=== PATIENT | male | born 1965 | race Caucasian/White ===

== ENCOUNTER 2016-06-20 15:50 | Emergency (ER) | payer SELFPAY ==
[~2016-06-20] VITALS: Ht 160 cm; Wt 66.0 kg
[~2016-06-20 15:50] MED LIST: NEXI20CA PO
[2016-06-20 15:52] VITALS: BP 116/71; PULSE 102; RESP 16; TEMP 98.7; O2SAT 99
--- NOTE | 2016-06-20 16:02 | PD ---
Physical Exam Date Seen by Provider: Jun 20, 2016 Time Seen by Provider: 15:59 Narrative 51 yowm c/o lbp for 3 days ago. no injury. no h/o back pain. no bowel or bladder changes vs noted awaiting bed placement. Data Data Last Documented VS Vital Signs Date Time Temp Pulse Resp B/P Pulse Ox O2 Delivery O2 Flow Rate FiO2 06/20/16 15:52 98.7 102 16 116/71 99 MDM Medical Record Reviewed: Yes Supervised Visit with RORY: Yes Mauricio oLu Jun 20, 2016 16:01
[2016-06-20] MEDS: ONDANSETRON HCL 4 MG/2 ML VIAL IVP ONE (17:15)
[2016-06-20] MEDS: HYDROmorphone HCL PF 2 MG/ML VIAL IM ONE (17:15)
--- NOTE | 2016-06-20 17:26 | PD ---
HPI . Abdominal, back and testicular pain Chief Complaint: Back/ Neck Pain or Injury Time Seen by Provider: 16:59 Travel History International Travel<30 days: No Contact w/Intl Traveler<30days: No Traveled to known affect area: No History of Present Illness HPI Patient presents with about a 3 to four-day history of low back pain, low abdominal pain. Her pain. Pain is exacerbated by any type of movement. Pain is unrelieved by any analgesic patch. Denies any GERD. He denies any nausea, vomiting or diarrhea. He denies any urinary tract symptoms such as dysuria, frequency or urgency. He denies any penile discharge. He denies any testicular swelling. He states that his pain is a 10 out of 10. PFSH Past Medical History Depression: Yes Cancer: No Cardiovascular Problems: No Diabetes: No Genitourinary: No Musculoskeletal: No Neurologic: No Psychiatric: No Reproductive: No Respiratory: No Thyroid Disease: Yes Ulcer: Yes Past Surgical History AICD: No Arteriovenous Shunt: No Insulin Pump: No Joint Replacement: No Pacemaker: No Social History Alcohol Use: No Tobacco Use: Yes (/ PPD) Substance Use: No (DENIES) Allergies-Medications (Allergen,Severity, Reaction): Coded Allergies: No Known Allergies (Verified , 06/20/16) Reported Meds & Prescriptions Reported Meds & Active Scripts Active Reported Nexium (Esomeprazole Magnesium) Esomeprazole Magnesium 20 mg Cap 20 Mg PO DAILY Review of Systems Except as stated in HPI: all other systems reviewed are Neg General / Constitutional: No: Fever, Chills Cardiovascular: No: Chest Pain or Discomfort Respiratory: No: Shortness of Breath Gastrointestinal: Positive: Abdominal Pain, No: Nausea, Vomiting, Diarrhea Genitourinary: Positive: Other (testicular pain), No: Urgency, Frequency, Dysuria, Discharge Physical Exam Narrative GENERAL: Healthy-appearing gentleman in no acute distress. SKIN: Warm and dry. HEAD: Atraumatic. Normocephalic. EYES: Pupils equal and round. ENT: No nasal bleeding or discharge. Mucous membranes pink and moist. NECK: Trachea midline. Neck is supple. CARDIOVASCULAR: Regular rate and rhythm. Heart sounds normal. RESPIRATORY: No accessory muscle use. Lungs are clear with full air movement throughout. GASTROINTESTINAL: Abdomen soft. Suprapubic tenderness. No pulsatile abdominal mass. Nondistended. Bowel sounds present. No CVA tenderness. : Normal circumcised male. No penile discharge. No obvious testicular swelling. He does have right testicular tenderness. No inguinal hernia palpated. MUSCULOSKELETAL: No obvious deformities. No edema. NEUROLOGICAL: Awake and alert. No obvious cranial nerve deficits. Motor grossly within normal limits. Normal speech. PSYCHIATRIC: Appropriate mood and affect; insight and judgment normal. Data Data Last Documented VS Vital Signs Date Time Temp Pulse Resp B/P Pulse Ox O2 Delivery O2 Flow Rate FiO2 06/20/16 15:52 98.7 102 16 116/71 99 Orders Complete Blood Count With Diff (06/20/16 17:08) Comprehensive Metabolic Panel (06/20/16 17:08) Ua Includes Microscopic (06/20/16 17:08) Gc And Chlamydia Pcr (06/20/16 17:08) Ct Abd/Pel W/O Iv Contrast (06/20/16 17:08) Us Testicles W Doppler (06/20/16 17:08) Iv Access Insert/Monitor (06/20/16 17:08) Ondansetron Inj (Zofran Inj) (06/20/16 17:15) Sodium Chloride 0.9% Flush (Ns Flush) (06/20/16 17:15) Hydromorphone Pf Inj (Dilaudid Pf Inj) (06/20/16 17:15) Labs Laboratory Tests Test 06/20/16 17:30 White Blood Count 6.3 TH/MM3 Red Blood Count 5.35 MIL/MM3 Hemoglobin 17.0 GM/DL Hematocrit 49.0 % Mean Corpuscular Volume 91.7 FL Mean Corpuscular Hemoglobin 31.7 PG Mean Corpuscular Hemoglobin 34.6 % Concent Red Cell Distribution Width 13.8 % Platelet Count 247 TH/MM3 Mean Platelet Volume 8.4 FL Neutrophils (%) (Auto) 65.2 % Lymphocytes (%) (Auto) 25.2 % Monocytes (%) (Auto) 7.8 % Eosinophils (%) (Auto) 1.1 % Basophils (%) (Auto) 0.7 % Neutrophils # (Auto) 4.1 TH/MM3 Lymphocytes # (Auto) 1.6 TH/MM3 Monocytes # (Auto) 0.5 TH/MM3 Eosinophils # (Auto) 0.1 TH/MM3 Basophils # (Auto) 0.0 TH/MM3 CBC Comment DIFF FINAL Differential Comment Urine Color YELLOW Urine Turbidity CLEAR Urine pH 6.0 Urine Specific Flora 1.031 Urine Protein TRACE mg/dL Urine Glucose (UA) NEG mg/dL Urine Ketones NEG mg/dL Urine Occult Blood NEG Urine Nitrite NEG Urine Bilirubin NEG Urine Urobilinogen 2.0 MG/DL Urine Leukocyte Esterase TRACE Urine RBC 6 /hpf Urine WBC 4 /hpf Urine Squamous Epithelial <1 /hpf Cells Urine Mucus FEW /lpf Microscopic Urinalysis Comment Sodium Level 139 MEQ/L Potassium Level 4.2 MEQ/L Chloride Level 102 MEQ/L Carbon Dioxide Level 30.9 MEQ/L Anion Gap 6 MEQ/L Blood Urea Nitrogen 15 MG/DL Creatinine 1.05 MG/DL Estimat Glomerular Filtration 74 ML/MIN Rate Random Glucose 72 MG/DL Calcium Level 8.6 MG/DL Total Bilirubin 0.3 MG/DL Aspartate Amino Transf 16 U/L (AST/SGOT) Alanine Aminotransferase 17 U/L (ALT/SGPT) Alkaline Phosphatase 67 U/L Total Protein 7.4 GM/DL Albumin 4.1 GM/DL [facility] Medical Decision Making Medical Screen Exam Complete: Yes Emergency Medical Condition: Yes Differential Diagnosis Differential diagnosis of abdominal pain includes but is not limited to gastritis, pancreatitis, hepatitis, gastroenteritis, gallbladder disease, constipation, urinary retention, UTI, peptic ulcer disease, diverticulitis or appendicitis Narrative Course Patient presents with lower abdominal, low back and testicular pain. I have ordered a renal stone CT and a testicular ultrasound. I have ordered basic labs. I have also ordered a urine and a GC/chlamydial DNA probe. He will be given IV analgesics. CBC & BMP Diagram 06/20/16 17:30 Liver function studies are normal. UA shows trace leukocyte esterase, 6 red cells. Last Impressions Scrotum Ultrasound 06/20/161707 Signed Impressions: Service Date/Time: Monday, June 20, 2016 18:25 - CONCLUSION: 1. Testicle is unremarkable sonographically with positive flow. Mildly enlarged left epididymis. Small epididymal cysts bilaterally. Small hydroceles. Mauricio Noble MD Abdomen/Pelvis CT 06/20/161 Signed Impressions: Service Date/Time: Monday, June 20, 2016 17:39 - CONCLUSION: 1. No acute findings. Mild constipation. Specifically no renal calculi or obstructive uropathy. Mauricio Noble MD I will treat the patient for possible UTI. I will also recommend milk of magnesia. Diagnosis Primary Impression: Abdominal pain Qualified Code: R10.30 - Lower abdominal pain Additional Impressions: Low back pain Qualified Code: M54.5 - Acute bilateral low back pain without sciatica Testicular pain, right Constipation Qualified Code: K59.00 - Constipation, unspecified constipation type Urinary tract infection Qualified Code: N34.2 - Infective urethritis Patient Instructions: General Instructions, Nonspecific Urethritis in Men (DC) Additional Instructions: Milk of magnesia nightly until stools are soft Med/Other Pt SpecificInfo: Prescription(s) given Scripts Tramadol (Ultram)50 Mg Tab50 Mg PO Q4H PRN (PAIN) #12 TAB Ref 0 Prov:Rosa Britton MD 06/20/16 Ibuprofen 800 Mg [id number] Mg PO Q8H PRN (pain) #30 TAB Ref 0 Prov:Rosa Britton MD 06/20/16 Doxycycline Hyclate 100 Mg [id number] Mg PO BID #20 CAP Ref 0 Prov:Rosa Britton MD 06/20/16 Disposition: 01 DISCHARGE HOME Condition: Stable Rosa Britton MD Jun 20, 2016 17:26
[2016-06-20 18:03] LABS: AUTOMATED NEUTROPHIL # 4.1 TH/MM3 (1.8-7.7); BASOPHIL % 0.7 % (0.0-2.0); EOSINOPHIL # 0.1 TH/MM3 (0-0.4); EOSINOPHIL % 1.1 % (0.0-4.0); HEMO FLAGS DIFF FINAL; LYMPH % 25.2 % (9.0-44.0); LYMPHOCYTE # 1.6 TH/MM3 (1.0-4.8); MEAN CELL VOLUME 91.7 FL (80.0-100.0); MEAN CORPUSCULAR HEMOGLOBIN 31.7 PG (27.0-34.0); MEAN CORPUSCULAR HGB CONC 34.6 % (32.0-36.0); MONO % 7.8 % (0.0-8.0); NEUT % 65.2 % (16.0-70.0); PLATELET COUNT 247 TH/MM3 (150-450); RED BLOOD COUNT 5.35 MIL/MM3 (4.50-5.90); RED CELL DISTRIBUTION WIDTH 13.8 % (11.6-17.2); WHITE BLOOD COUNT 6.3 TH/MM3 (4.0-11.0)
[2016-06-20 18:24] LABS: BLOOD, URINE NEG (NEG); GLUCOSE,URINE NEG (NEG); KETONE, URINE NEG (NEG); MUCUS URINE FEW /lpf (OCC); NITRITE,URINE NEG (NEG); SQUAMOUS EPITHELIAL CELL URINE <1 /hpf (0-5); URINE COLOR YELLOW (YELLW/STRAW)
[2016-06-20 18:25] LABS: ANION GAP 6 MEQ/L (5-15); AST (GOT) 16 U/L (15-37); BICARBONATE 30.9 MEQ/L (21.0-32.0); BLOOD UREA NITROGEN 15 MG/DL (7-18); CHLORIDE 102 MEQ/L (98-107); GLOMERULAR FILTRATION RATE 74 ML/MIN (>89); POTASSIUM 4.2 MEQ/L (3.5-5.1); SODIUM (NA) 139 MEQ/L (136-145)
--- NOTE | 2016-06-20 18:27 | RADRPT ---
EXAM DATE/TIME: 06/20/2016 17:39 [facility] COMPARISON: No previous studies available for comparison. INDICATIONS : Evaluate for calculi. ORAL CONTRAST: No oral contrast ingested. RADIATION DOSE: 9.96 CTDIvol (mGy) MEDICAL HISTORY : Hypertension. SURGICAL HISTORY : None. ENCOUNTER: Initial ACUITY: 3 days PAIN SCALE: 4/10 LOCATION: Bilateral flank TECHNIQUE: Volumetric scanning of the abdomen and pelvis was performed. Using automated exposure control and ad justment of the mA and/or kV according to patient size, radiation dose was kept as low as reasonably achievable to obtain optimal diagnostic quality images. FINDINGS: Lung bases are clear. No acute findings in the liver, spleen, adrenals, kidneys or pancreas. Specific ally no renal calculi or evidence for obstructive uropathy. No calcified gallstones or biliary ductal dilatation. Mild constipation. Appendix is normal. CONCLUSION: 1. No acute findings. Mild constipation. Specifically no renal calculi or obstructive uropathy. Mauricio Noble MD on June 20, 2016 at 18:21 Board Certified Radiologist. This report was verified electronically.
[2016-06-20 18:29] LABS: ALKALINE PHOSPHATASE 67 U/L (45-117); ALT (GPT) 17 U/L (12-78); TOTAL BILIRUBIN ADULT 0.3 MG/DL (0.2-1.0)
--- NOTE | 2016-06-20 19:52 | RADRPT ---
EXAM DATE/TIME: 06/20/2016 18:25 [facility] COMPARISON: No previous studies available for comparison. INDICATIONS : Scrotal pain. MEDICAL HISTORY : Hypertension. Hyperthyroidism. Ulcer. Depression. SURGICAL HISTORY : Left arm surgery from trauma. ENCOUNTER: Initial ACUITY: 3 days PAIN SCORE: 1/10 LOCATION: Bilateral scrotum. MEASUREMENTS: RIGHT TESTICLE: 4.0 x 2.9 x 2.1cm LEFT TESTICLE: 3.6 x 2.4 x 2.0 cm FINDINGS: Testicles within normal size without testicular mass. Positive testicular blood flow. 3 mm right epid idymal cyst. 2 mm left epididymal cyst. Epididymis mildly enlarged. Mild hydroceles. CONCLUSION: 1. Testicle is unremarkable sonographically with positive flow. Mildly enlarged left epididymis. Smal l epididymal cysts bilaterally. Small hydroceles. Mauricio Noble MD on June 20, 2016 at 19:47 Board Certified Radiologist. This report was verified electronically.
[2016-06-20] MEDS ORDERED: DOXY100C PO (20:10)
[2016-06-20] MEDS ORDERED: IBUP800T23 PO (20:10)
[2016-06-20] MEDS ORDERED: ULTR50TA5 PO (20:10)
[2016-06-20 20:40] VITALS: BP 140/82; PULSE 84; RESP 14; O2SAT 96
[2016-06-20] MEDS: DOXYCYCLINE HYCLATE 100 MG CAP PO ONE (20:59)
[2016-06-20] MEDS: SODIUM CHLORIDE 0.9% FLUSH 10 ML FLUSH IVF PRN (20:59)
[2016-06-21 00:31] LABS: CHLAMYDIA PCR NOT DETECTED (NOT DETECT); NEISSERIA PCR NOT DETECTED (NOT DETECT)
== END 2016-06-20 21:04 | disposition home or self-care (01) ==
LOC: NEPD 15:50
DX: R10.30 Lower abdominal pain, unspecified (principal); M54.5 Low back pain; K59.00 Constipation, unspecified; N34.2 Other urethritis; N43.3 Hydrocele, unspecified; N50.89 Other specified disorders of the male genital organs; F17.210 Nicotine dependence, cigarettes, uncomplicated
CPT/HCPCS: 74176; 76870; 80053; 81001; 85025; 87491; 87591; 93975; 96372; 96374; 99284; J1170; J2405